=== PATIENT | female | born 1980 | race Caucasian/White ===

== ENCOUNTER 2025-08-26 13:25 | Outpatient (AMB) | payer OTHER, SELFPAY ==
--- NOTE | 2025-08-26 13:29 | MHC.OFFVIS ---
Vital Signs 08/26/25 13:39 Height 5 ft 5 in Weight 125 lb BMI 20.8 Handedness Right Intake Visit Reasons: Foot injury/offer sooner rambo unable due to work Intake Note: Bela is a 45 year old female who presents today as a new patient for a evaluation of her left great toe pain. Patient states that her pain started on 01/2025. Patient reports she went to a hike and when she was going down hill she was scrunching her toes going done and felt sharp pain. She states that she was wearing heels two weeks ago and it caused her more pain when she was putting pressure on her left toe. Allergies metronidazole Allergy (Verified 08/26/25 13:37) Dizziness HPI HPI Foot injury/offer sooner rambo unable due to work: Details: 45-year-old female with no pertinent past medical history presents today for initial evaluation of left big toe pain. She states that she had a left big toe sprain while hiking past spring. Since then, she has had occasional episodes of further worsening pain to her big toe joint. Most recently, she wore high heels and had felt immediate pain to her big toe joint. She also notes right foot bunion and a second toe overlapping deformity that causes blisters when she hikes or wears narrow shoes. Social: - walk/hikes 3 miles a day. REPLACED BY [facility] Social History (Updated 08/26/25 @ 13:38 by Keysha Gallegos) Alcohol intake: current Alcohol intake frequency: holidays/special occasions only Patient Tobacco Use Status: Never used Tobacco Current occupational status: employed Current occupation: Nanny/ right hand dominant Review of Systems Const All systems reviewed & are unremarkable except as noted in HPI and below Physical Exam Vital Signs: BMI result Body Mass Index 20.8 Extrem Other: *Bilateral Lower Extremity Focused Exam Vascular: DP/PT 2/4, CFT<3s to all digits, TG warm to cool, no pedal edema Derm: no erythema or clinical signs of infection Neuro: negative tinel's sign MSK: Left hallux dorsiflexion 10 degrees, moderate tenderness on palpation of the plantar lateral aspect of the 1st MTP and on maximum dorsiflexion. Mild tenderness overlying dorsal 1st MTP and extensor hallucis longus tendon. Moderate dorsal 1st MTP eminence left foot. Moderate tracking right hallux valgus deformity, 65 degrees of dorsiflexion, mild overlapping 2nd digit. Negative 1st MTP omar's test. Results Reviewed Results Reviewed: X-ray Read: 08/19/2025 X-ray left foot 3 views (AP, MO, Lateral) reviewed which shows moderate 1st MTP joint space narrowing, sesamoids within normal limits. No fractures, dislocations, or gross abnormalities. Bone density is within normal limits. No evidence of swelling, foreign body, or calcifications. I personally reviewed the imaging and my findings are listed above. Assessment & Plan Assessment & Plan (1) Turf toe of left foot: Code(s): S93.522A - Sprain of metatarsophalangeal joint of left great toe, initial encounter Category: Medical Plan: Differential diagnosis includes Sesamoiditis, plantar plate tear. Referred for MRI to rule out non-healing plantar plate tear vs rupture in the setting of chronic pain for 7+ months. Recommended use of carbon fiber insole and supportive boots. (2) Hallux rigidus of left foot: Code(s): M20.22 - Hallux rigidus, left foot Category: Medical Plan: Reviewed left foot x-ray with the patient Discussed conservative versus surgical treatment options which include cheilectomy 1st MTP, MTP arthroplasty, and arthrodesis. No recommendations for surgical intervention at this point. (3) Hallux valgus (acquired), right foot: Code(s): M20.11 - Hallux valgus (acquired), right foot Category: Medical Plan: Recommended bunion sleeve (4) Hammertoe of right foot: Code(s): M20.41 - Other hammer toe(s) (acquired), right foot Category: Medical Plan: Recommended toe seperator Orders: Orders MR foot LT wo con Today S93.522A - Sprain of metatarsophalangeal joint of left great toe, initial encounter Coding Level of Care Code New Pt Level 4 (63798) Diagnoses Turf toe of left foot S93.522A Hallux rigidus of left foot M20.22 Hallux valgus (acquired), right foot M20.11 Hammertoe of right foot M20.41 Time Spent (min) 35
[2025-08-26 13:39] VITALS: BMI 20.8
--- OUTSIDE RECORDS SUMMARY | 2025-08-26 18:07 | XMS_ITS | Clinical Summary ---
Author Organization [address] Address [address] [place] [phone] Phone Care Team Providers Care Roof Bolter Operator Name Role Phone No, Pcp (Do Not Change Name) Primary Care Provid er Unavailable Allergies Active Allergy Reactions Criticality Noted Date Comments Diphenhydramine Hcl Unknown 11/24/2024 Environmental Allergies Unknown 11/24/2024 House Dust Unknown 11/23/2018 Latex Unknown 11/05/2024 Mold Unknown 11/23/2018 Medications cetirizine (ZYRTEC) 10 mg tablet Take 1 tablet (10 mg total) by mouth daily. 02/22/2024 Active montelukast (SINGULAIR) 10 mg tablet Take 1 tablet (10 mg total) by mouth. 04/23/2024 Active ibuprofen (ADVIL,MOTRIN) 600 mg tablet Take 1 tablet (600 mg total) by mouth every 6 (six) hours as needed. 60 tablet 08/19/2025 Active Active Problems Problem Noted Date Diagnosed Date Acute non-recurrent maxillary sinusitis 11/24/19 25 Encounters Date Type Department Care Team Description 08/19/2025 11:15 AM EST Office Visit [facility] [address] [place] [address] Kassy Macias PA Pain of left great toe (Primary Dx) from Last 3 Months Immunizations Immunization Administration Dates Next Due DTP 03/17/1984, 1,1979,1978 Influenza, trivalent, inject able, contains preservative 06/12/2020,08/18/2015 MMR 03/06/1991,06/26/1980 Polio (IPV) 01/02/1981, 0,1979,1978 Td (>7 yo), 2 LF tetanus tox oid, PF, absorbed 02/19/1994 Tdap 11/03/2009 Family History Relation Name Status Comments Father Alive Mother Alive Social History Tobacco Use Types Packs/Day Years Used Date Smoking Tobacco: Never Smokeless Tobacco: Never Tobacco Cessation:Counseling Given: Not Answered Alcohol Use Standard Drinks/Week Comments Yes 0 (1 standard drink = 0.6 oz pur e alcohol) occ Comments Unknown Sex and Gender Information Value Date Recorded Sex Assigned at Not on file Legal Sex Female 1:00 PM EDT Gender Identity Not on file Sexual Orientation Not on file Last Filed Vital Signs Vital Sign Reading Time Taken Comments Blood Pressure 136/89 08/19/2025 11:26 AM EST Pulse 79 08/19/2025 11:26 AM EST Temperature 36.5 C (97.7 F) 08/19/2025 11:26 AM EST Respiratory Rate 16 08/19/2025 11:26 AM EST Oxygen Saturation 99% 08/19/2025 11:26 AM EST Inhaled Oxygen Concentration - - Weight 57.6 kg (127 lb) 08/19/2025 11:26 AM EST Height 165.1 cm (5' 5 ) 08/19/2025 11:26 AM EST Body Mass Index 21.13 08/19/2025 11:26 AM EST Plan of Treatment Health Maintenance Due Date Last Done Comments HIV screening 01/14/1992 Hepatitis C screening 1997 Cervical cancer screening 01/14/2000 Breast cancer screening 2019 Lipid disorder screening 2019 Tetanus adult (Td q 10,TDAP once) 11/03/2019 11/03/2009, 02/19/1994 Diabetes screening 01/14/2024 Influenza vaccine 05/03/2025 06/12/2020, 08/18/2015 Covid-19 vaccine series ( - season) 2025 12/26/2021, 01/11/2021 Colon cancer screening, Colonoscopy 02/11/2035 02/11/2025 RSV Immunization (1 - 1-dose 75+ series) 2054 Meningococcal B Vaccine Aged Out No l onger eligible based on patient's age to complete this topic Meningococcal Vaccine Aged Out No cullen rufus eligible based on patient's age to complete this topic Pneumococcal Vaccine (2 - 49 years) Aged Out No longer eligible b ased on patient's age to complete this topic Procedures Procedure Name Priority Date/Time Associated Diagnosis Comments XR FOOT LEFT AP LATERAL AND OBLIQUE Within 2 hours (STAT) 08/19/2025 12:07 PM EST Pain of left great toe from Last 3 Months Results * XR Foot Left AP Lateral and Oblique (08/19/2025 12:07 PM EST) Anatomical Region Laterality Modality Foot, Ankle, Ortho Foot Left Digital Radiography 08/19/2025 12:5 0 PM EST Narrative 08/19/2025 12:50 PM EST Exam X-Ray Views of the Left Foot Comparison None provided. Findings There is no soft tissue swelling identified. There is no clear radiographic evidence for acute fracture on these views. There is no radio opaque foreign body appreciated. Mild degenerative changes in the first MTP joint. /Doe Procedure Note Kely Rubio, - 08/19/2025 Exam X-Ray Views of the Left Foot Comparison None provided. Findings There is no soft tissue swelling identified. There is no clear radiographic evidence for acute fracture on these views. There is no radio opaque foreign body appreciated. Mild degenerative changes in the first MTP joint. /Doe K[facility] ORDERABLES Final Result from Last 3 Months Insurance [employer] [facility] Care Teams Roof Bolter Operator Relationship Specialty Start Date End Date No, Pcp (Do Not Change Name) PCP - General 11/24/24
--- OUTSIDE RECORDS SUMMARY | 2025-08-26 18:08 | XMS_ITS | Clinical Summary ---
Author Organization [employer] [facility] Address [address] [facility] [place] [address] Care Team Providers Care Topology Professor Name Role Phone Chantelle Boo MD Primary Care Provider [phone] Allergies No known active allergies Medications NIFEdipine (ADALAT CC) 30 MG 24 hr tablet 0 10/19/2017 Act lennox cetirizine (ZyrTEC) 10 MG tablet Take 10 mg by mouth daily. Active Social History Tobacco Use Types Packs/Day Years Used Date Smoking Tobacco: Never Comments No Sex and Gender Information Value Date Recorded Sex Assigned at Not on file Legal Sex Female 5:38 PM EDT Gender Identity Not on file Sexual Orientation Not on file Last Filed Vital Signs Vital Sign Reading Time Taken Comments Blood Pressure 120/70 11/30/2017 10:35 AM EST Pulse 74 11/30/2017 10:35 AM EST Temperature 36.6 C (97.9 F) 11/30/2017 10:35 AM EST Respiratory Rate 16 11/30/2017 10:35 AM EST Oxygen Saturation 99% 11/30/2017 10:35 AM EST Inhaled Oxygen Concentration - - Weight 59 kg (130 lb) 11/30/2017 10:35 AM EST Height 167.6 cm (5' 6 ) 11/30/2017 10:35 AM EST Body Mass Index 20.98 11/30/2017 10:35 AM EST Plan of Treatment Not on file Medical Devices Not on file Insurance [employer] Care Teams Topology Professor Relationship Specialty Start Date End Date Chantelle Boo MD PCP - Retail Customer Service Representative 11/30/17
--- OUTSIDE RECORDS SUMMARY | 2025-08-26 18:08 | XMS_ITS | Clinical Summary ---
Author Organization [address] [facility] Address [address] [place] [address] Phone Care Team Providers Care Air Carrier Inspector Name Role Phone Renetta Grace MD Primary Care Provider [phone] Allergies Active Allergy Reactions Criticality Noted Date Comments House Dust 11/23/2018 Latex 11/05/2024 Mold 11/23/2018 Medications albuterol HFA (PROAIR HFA ; PROVENTIL HFA ; VENTOLIN HFA) 90 mcg/actuation inhaler INHALE 2 PUFFS BY MOUTH EVERY 4 HOURS FOR 7 DAYS NEEDED 04/07/20 24 Active OMEGA-3 FATTY ACIDS-FISH OIL ORAL Take 1,400 mg by mouth 1 (one) time each day. Active DAILY MULTI-VITAMIN ORAL Take by mouth. Activ e NIFEdipine (ADALAT CC) 30 mg 24 hr tablet Take 1 tablet (30 mg total) by mouth 1 (one) time each day. Active calcium carb/vit D3/minerals (CALCIUM CARBONATE-VIT D3-MIN ORAL) Take 1,000 mg by mouth 1 (one) time each day. Active cetirizine (ZyrTEC) 10 mg tablet Take 1 tablet (10 mg total) by mouth 1 (one) time each day. Active diclofenac (Voltaren Arthritis Pain) 1 % topical gelIndications :DDD (degenerative disc disease), cervical,Compr ession fracture of body of thoracic vertebra (CMS/HCC V24, CMS/HCC V28) Apply 4 g topically 4 (four) times a day. 45 g 11 11/05/19 25 Active Additional Information Patient not taking.Reported on 12/12/2024 fluticasone propionate (FLONASE) 50 mcg/actuation nasal spray Administer 2 sprays into each nostril 1 (one) time each day. Shake liquid Active polyethylene glycol (Golytely) 236-22.74-6.74 -5.86 gram solution Take 4L by mouth once for one dose. May substitue any PEG. Starting at 6PM the night before your procedure drink 1 8oz glasses at your own pace until you complete half of the gallon. Finish 2nd half of the gallon 5 hours before your procedure. 4000 mL 01/29/20 25 Active bisacodyL (DULCOLAX) 5 mg EC tablet Take 2 tablets by mouth right before beginning bowel prep. See instructions provided by the office 2 tablet 01/29/20 25 Active montelukast (SINGULAIR) 10 mg tablet Take 1 tablet (10 mg total) by mouth at bedtime. 30 each 2 03/18/20 25 Active montelukast (SINGULAIR) 10 mg tablet Take 1 tablet (10 mg total) by mouth at bedtime. Take 1 Tablet by mouth at bedtime for 180 days. 90 each 1 06/13/20 25 026 Active hydrOXYzine HCL (ATARAX) 10 mg tabletIndicati ons:Psoriasis, Insomnia, unspecified type Take 1 tablet (10 mg total) by mouth 1 (one) time each day. 30 tablet 3 08/19/20 25 Active hydrOXYzine HCL (ATARAX) 10 mg tabletIndicati ons:Psoriasis, Insomnia, unspecified type Take 0.5 tablets (5 mg total) by mouth at bedtime as needed for itching or anxiety. 30 tablet 3 11/28/19 25 025 Discontinued Active Problems Problem Noted Date Diagnosed Date DDD (degenerative disc disease), cervical 2018 Overview (09/03/2024): mild Rosacea 12/11/2018 Eczema 12/11/2018 Allergic rhinitis 12/11/2018 Raynaud's disease 11/23/2018 Lateral epicondylitis of left elbow 11/23/2018 Overview (09/03/2024): S/p injection NEOS, some low symptoms ongoing. Psoriasis 11/23/2018 Migraine without aura 11/23/2018 Antiphospholipid antibody positive 11/23/2018 Immunizations Immunization Administration Dates Next Due DTP 03/17/1984, 1,1979,1978 IPV Inactivated polio (Ipol) 6wks and older 01/02/1981,1979,1979,1978 MMR, measles mumps and rubel la Live (Priorix; M-M-R II) 12mo and older 03/06/1991,06/26/1980 Td Tetanus diptheria (Tdvax) 7yo and older 02/19/1994 Tdap Tetanus diptheria acell ular pertussis (Boostrix; Adacel) 7yo and older 11/03/2009 Surgical History Surgery Date Site/Laterality Comments KNEE ARTHROSCOPY W/ DEBRIDEMENT 2000 Left PROCEDURE: SD ARTHRS KNEE DEBRIDEMENT/SHAVING ARTCLR CRTLG TONSILLECTOMY 2011 PROCEDURE: HISTORICAL TONSILLECTOMY Medical History Medical History Date Comments Allergic rhinitis 12/11/2018 DX:Allergic rh initis Antiphospholipid antibody positive 11/23/2018 DX:Antiphospholipid antibody positive DDD (degenerative disc disea se), cervical 12/11/2018 DX:DDD (degenerative disc di sease), cervical; COMMENT: Cervical and thoracic Eczema 12/11/2018 DX:Eczema Lateral epicondylitis of left elbow 11/23/2018 DX:Lateral epicondylitis of left elbow; COMMENT: S/p injection NEOS, some low symptoms ongoing. Migraine without aura 11/23/2018 DX:Migrain e without aura Psoriasis 11/23/2018 DX:Psoriasis Raynaud's disease 11/23/2018 DX:Raynaud's d isease Rosacea 12/11/2018 DX:Rosacea Family History Medical History Relation Name Comments COPD Brother related to time in [place] Other: IBS Brother Other: PTSD Brother Hypertension Father Parkinson's Disease Maternal Grandfather Stroke Maternal Grandmother Glaucoma Mother Other: vasculitis Mother Thyroid disease Mother Mita's Thyroid disease Mother's side aunts and c ousins on mother's side Emphysema Paternal Grandfather No Known Problems Paternal Grandmother Relation Name Status Comments Brother Alive Father Alive Maternal Grandfather Maternal Grandmother Mother Alive Mother's side Paternal Grandfather Paternal Grandmother Social History Tobacco Use Types Packs/Day Years Used Date Smoking Tobacco: Never Smokeless Tobacco: Never Tobacco Cessation:Counseling Given: Not Answered Alcohol Use Standard Drinks/Week Comments Yes 0 (1 standard drink = 0.6 oz pur e alcohol) Interpersonal Safety Answer Date Record ed Physical Abuse Unrecognized value 02/11/2025 Verbal Abuse Unrecognized value 02/11/2025 Comments No Sex and Gender Information Value Date Recorded Sex Assigned at Female 12/12/2024 4:26 PM EDT Legal Sex Female 11:22 AM EST Gender Identity Female 12/12/2024 4:26 PM EDT Sexual Orientation Straight 12/12/2024 4: 27 PM EDT 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 Not on file Not on file Obstetrics History Last Filed Vital Signs Vital Sign Reading Time Taken Comments Blood Pressure 140/72 03/18/2025 3:53 PM EDT Pulse 72 03/18/2025 3:53 PM EDT Temperature 36.4 C (97.6 F) 03/18/2025 3:53 PM EDT Respiratory Rate 16 03/18/2025 3:53 PM EDT Oxygen Saturation 98% 03/18/2025 3:53 PM EDT Inhaled Oxygen Concentration - - Weight 57.5 kg (126 lb 12.8 oz) 03/18/2025 3:53 PM EDT Height 167.6 cm (5' 6 ) 03/18/2025 3:53 PM EDT Body Mass Index 20.47 03/18/2025 3:53 PM EDT Plan of Treatment Upcoming Encounters Date Type Department Care Team (Late st Contact Info) Description 11/06/2025 10:30 AM EST Office Visit Internal Medicine - [place] [address] [phone] Joey Mcknight NP 175 [facility] [address] [place] [address] 03/18/2026 8:15 AM EDT Office Visit Pulmonology - [place] [address] [phone] Che Kyle MD [address] [place] [phone] Health Maintenance Due Date Last Done Comments Breast Cancer Screening 1979 Hepatitis B Vaccines (1 of 3 - 19+ 3-dose series) 1998 Cervical Cancer Screening: Pap Smear 01/14/2000 DTaP,Tdap,and Td Vaccines (7 - Td or Tdap) 11/03/2019 11/03/2009, 02/19/1994, 03/17/1984, Additional history exists HIV Screening 08/31/2022 Hepatitis C Screening 08/31/2022 Social Influencers of Health Screening 08/31/2022 Depression Screening 10/03/2024 COVID-19 Vaccine ( season) 2025 12/26/2021, 01/11/2021 Influenza Vaccine (#1) 2025 06/12/2020, 2014 Colorectal Cancer Screening: Colonoscopy 02/11/2035 02/11/2025 RSV Immunization Adult Patients (1 - 1-dose 75+ series) 2054 IPV Vaccines Completed 01/02/1981, 10/03, 1979, Additional history exists MMR Vaccines Completed 03/06/1991, 06/26/1980 HIB Vaccines Aged Out No longer eligi ble based on patient's age to complete this topic HPV Vaccines Aged Out No longer eligi ble based on patient's age to complete this topic Hepatitis A Vaccines Aged Out No long er eligible based on patient's age to complete this topic Meningococcal ACWY Vaccine Aged Out N o longer eligible based on patient's age to complete this topic Meningococcal B Vaccine Aged Out No l onger eligible based on patient's age to complete this topic Pneumococcal Vaccine: Pediatrics (0 to 5 Years) and At-Risk Patients (6 to 49 Years) Aged Out No longer eligible based on patient's age to complete this topic RSV Immunization Patients Under 20 months Aged Out No longer eligible based on patient's age to complete this topic Varicella Vaccines Aged Out No longer eligible based on patient's age to complete this topic Procedures Procedure Name Priority Date/Time Associated Diagnosis Comments COLONOSCOPY Routine 02/11/2025 1:17 PM EDT Colon cancer screening from Last 3 Months or Most Recently Relevant to Health Maintenance Results * COLONOSCOPY Anesthesia - MAC; [facility] ENDOSCOPY (02/11/2025 1:17 PM EDT) Anatomical Region Laterality Modality Other 02/11/2025 12:5 4 PM EDT Impressions 02/11/2025 1:16 PM EDT - The entire examined colon is normal on direct and retroflexion views. - No specimens collected. Recommendation: - Patient has a contact number available for emergencies. The signs and symptoms of potential delayed complications were discussed with the patient. Return to normal activities tomorrow. Written discharge instructions were provided to the patient. - Resume previous diet. - Continue present medications. - Repeat colonoscopy in 10 years for screening purposes. Narrative 02/11/2025 1:[address] [facility] Patient Name: Bela Larson Procedure Date: 02/11/2025 12:54 PM Date of : 1980 Age: 45 Room: ROOM 14 Gender: Female Note Status: Finalized Attending MD: Juni Carrillo MD, Procedure Date No Time: 02/11/2025 Procedure: Colonoscopy Indications: Screening for colorectal malignant neoplasm Providers: Juni Carrillo MD Referring MD: Juni Carrillo MD Medicines: Monitored Anesthesia Care Complications: No immediate complications. Estimated Blood Loss: Estimated blood loss: none. Procedure: After I obtained informed consent, the scope was passed under direct vision. Throughout the procedure, the patient's blood pressure, pulse, and oxygen saturations were monitored continuously. The Colonoscope was introduced through the anus and advanced to the cecum, identified by appendiceal orifice and ileocecal valve. The colonoscopy was performed without difficulty. The patient tolerated the procedure well. The quality of the bowel preparation was adequate. Findings: The entire examined colon appeared normal on direct and retroflexion views. Procedure Code(s): --- Professional --- G0121, Colorectal cancer screening; colonoscopy on individual not meeting criteria for high risk Diagnosis Code(s): --- Professional --- Z12.11, Encounter for screening for malignant neoplasm of colon CPT copyright 2020 [employer]. All rights reserved. The codes documented in this report are preliminary and upon information delivery analyst review may be revised to meet current compliance requirements. MD Juni Millan MD 02/11/2025 1:16:32 PM This report has been signed electronically.Juni Carrillo MD Number of Addenda: 0 Note Initiated On: 02/11/2025 12:54 PM Scope In: Scope Out: Endoscopy Department at [facility] - [address] [place] [phone] Procedure Note Juni Carrillo MD - 02/11/2025 [facility] Patient Name: Bela Larson Procedure Date: 02/11/2025 12:54 PM Date of : 1980 Age: 45 Room: ROOM 14 Gender: Female Note Status: Finalized Attending MD: Juni Carrillo MD, Procedure Date No Time: 02/11/2025 Procedure: Colonoscopy Indications: Screening for colorectal malignant neoplasm Providers: Juni Carrillo MD Referring MD: Juni Carrillo MD Medicines: Monitored Anesthesia Care Complications: No immediate complications. Estimated Blood Loss: Estimated blood loss: none. Procedure: After I obtained informed consent, the scope was passed under direct vision. Throughout theprocedure, the patient's blood pressure, pulse, and oxygen saturations were monitored continuously. The Colonoscope was introduced through the anus and advanced to the cecum, identified by appendiceal orifice and ileocecal valve. The colonoscopy was performed without difficulty. The patient tolerated the procedure well. The quality of the bowel preparation was adequate. Findings: The entire examined colon appeared normal on direct and retroflexion views. Procedure Code(s): --- Professional --- G0121, Colorectal cancer screening; colonoscopy on individual not meeting criteria for high risk Diagnosis Code(s): --- Professional --- Z12.11, Encounter for screening for malignantneoplasm of colon CPT copyright 2020 [employer]. All rights reserved. The codes documented in this report are preliminary and upon information delivery analyst reviewmay be revised to meet current compliance requirements. MD Juni Millan MD 02/11/2025 1:16:32 PM This report has been signed electronically.Juni Carrillo MD Number of Addenda: 0 Note Initiated On: 02/11/2025 12:54 PM Scope In: Scope Out: Endoscopy Department at [facility] - [address] [place] [phone] IMPRESSION: - The entire examined colon is normal on direct and retroflexion views. - No specimens collected. Recommendation: - Patient has a contact number available for emergencies. The signs and symptoms of potential delayed complications were discussed with thepatient. Return to normal activities tomorrow. Written discharge instructions were provided to thepatient. - Resume previous diet. - Continue present medications. - Repeat colonoscopy in 10 years for screening purposes. us Juni Carrillo MD GI~PROCEDURE ORDERABLES Final R esult from Last 3 Months or Most Recently Relevant to Health Maintenance Insurance [facility] [employer] Care Teams Air Carrier Inspector Relationship Specialty Start Date End Date Renetta Grace MD [address] [place] [address] [address] [place] [phone] PCP - General 05/03/24
--- OUTSIDE RECORDS SUMMARY | 2025-08-26 18:08 | XMS_ITS ---
Author Name [facility] Organization Unknown History of Medication Use Medication Directions Dispensed Refills Start Date End Date Stat us ibuprofen (ADVIL,MOTRIN) 600 mg tablet Take 1 tablet (600 mg total) by mouth every 6 (six) hours as needed. 08/19/2025 active doxycycline monohydrate (ADOXA) 100 mg tablet Take 1 tablet (100 mg total) by mouth 2 (two) times daily for 7 days. 11/24/2024 active mupirocin (BACTROBAN) 2 % ointment Apply topically 3 (three) times daily for 7 days. 11/24/2024 active hydrOXYzine (ATARAX) 10 mg tablet Take 1 tablet (10 mg total) by mouth daily as needed. 11/05/2024 active montelukast (SINGULAIR) 10 mg tablet Take 1 tablet (10 mg total) by mouth. 04/23/2024 active Bromfed DMTake 5 ml (oral) 4 times per day PRN for 5 [id number] times per [id number] 0-10mg/5 mL 04/19/2024 active azithromycinTake 1 tablet (oral) 1 time per day for 5 [id number] time per wsrxwnl9qpxefxclyp053 MG 04/19/2024 active benzonatateTake 1 capsule (Oral) 3 times per day PRN - Cough for 5 [id number] times per renLxju6nezkimdvnr496 mg 04/07/2024 active albuterol sulfateTak e 2 Puff(s) (inhalation) every 4 hours PRN for 7 [id number] aerosol inhalerevery 4 jyhyctrcypgukxr5xrmif cabtlhce32pwg/actuati on 04/07/2024 suspended predniSONETake 2 tablet (oral) 1 time per day for 5 [id number] time per fhrhptg1rhpbyklerc79j g 04/07/2024 active cetirizine (ZYRTEC) 10 mg tablet Take 1 tablet (10 mg total) by mouth daily. 02/22/2024 active aspirinTakeNo date recordedNo form recordedNo frequency recordedNo route recordedNo set duration recordedNo set duration amount recordedactiveNo dosage strength recordedNo dosage strength units of measure recorded active Flonase Allergy ReliefTakeNo date recordedNo form recordedNo frequency recordedNo route recordedNo set duration recordedNo set duration amount recordedactiveNo dosage strength recordedNo dosage strength units of measure recorded active Allergies Allergen Reaction Severity Comment Documented Date Source Statu s ENVIRONMENTAL ALLERGIES 11/24/2024 [facility] active LATEX 11/05/2024 [facility] active MOLD 11/23/2018 [facility] active DIPHENHYDRAMINE HCL [facility] HOUSE DUST [facility] Problems Problem Status Onset Date Problem Type Date of Resolution Source Acute non-recurrent maxillary sinusitis active 2024-11-24 ProblemAct [facility] Pain of left great toe active EncounterDiagnosisAct [facility] EUC Other chest pain active 2024-04-09 ProblemAct C [facility] Cough, unspecified active 2024-04-19 ProblemAct [facility] Acute bronchitis, unspecified active 2024-04-19 ProblemAct [facility] Other asthma active ProblemAct [facility] SONE Other asthma active 2024-04-07 ProblemAct [facility] YSONE Acute cough active 2024-04-09 ProblemAct [facility] Immunizations Vaccine Date Source Lot Number Status Influenza, trivalent, inject able, contains preservative 06/12/2020 [facility] [id number] completed Influenza, trivalent, inject able, contains preservative 08/18/2015 [facility] [id number] completed Tdap 11/03/2009 [facility] UNK completed Td (>7 yo), 2 LF tetanus tox oid, PF, absorbed 02/19/1994 [facility] UNK completed MMR 03/06/1991 [facility] UNK completed DTP 03/17/1984 [facility] completed DTP 01/02/1981 [facility] completed Polio (IPV) 01/02/1981 [facility] UNK completed MMR 06/26/1980 [facility] UNK completed Polio (IPV) 1979 [facility] UNK completed Polio (IPV) 1979 [facility] UNK completed DTP 1979 [facility] completed Polio (IPV) 1979 [facility] completed DTP 1979 [facility] completed Encounters Encounter Type Encounter Reason Primary Diagnosis Location Date Ambulatory [facility] [place] 08/21/2025 Ambulatory Pain in limb Pain in limb [facility] 08/19/2025 Ambulatory Acute maxillary sinusitis Acute maxillary sinusitis [facility] 11/24/2024 Care Team Organization Name Specialty Phone Email Start Date End Da te [facility] 08/19/2025 [facility] 11/24/2024 [facility]24 [facility]
== END 2025-08-26 14:06 | disposition home or self-care (01) ==
LOC: HO.HPODS 13:26
PROVIDERS: PCP Internal Medicine; Visit Provider Student in an Organized Health Care Education/Training Program
DX: S93.522A Sprain of metatarsophalangeal joint of left great toe, initial encounter (principal); M20.22 Hallux rigidus, left foot; M20.11 Hallux valgus (acquired), right foot; M20.41 Other hammer toe(s) (acquired), right foot
CPT/HCPCS: 99204

== ENCOUNTER → 2025-08-26 13:25 | Outpatient (BNVA) | payer OTHER, SELFPAY | PROVIDERS: PCP Internal Medicine; Visit Provider Student in an Organized Health Care Education/Training Program | DX: S93.522A Sprain of metatarsophalangeal joint of left great toe, initial encounter (principal); M20.22 Hallux rigidus, left foot; M20.11 Hallux valgus (acquired), right foot; M20.41 Other hammer toe(s) (acquired), right foot | CPT/HCPCS: 99202 ==